=== PATIENT | female | born 1955 | race Caucasian/White ===

== ENCOUNTER 2021-06-12 11:49 | Inpatient (IN) ==
[2021-06-12 12:37] LABS: Basophils % 0.7 %; Hemoglobin 6.5 g/dL (11.5-15.4); Mean Platelet Volume 9.4 fL (9.4-12.4); Nucleated Red Blood Cells 0.3 /100 WBC (0)
[2021-06-12 12:51] LABS: Basophils # 0.1 K/mcL (0.0-0.2); Eosinophils # 0.4 K/mcL (0.0-0.6); Eosinophils % 2.4 %; Hematocrit 26.4 % (35.3-44.9); Immature Granulocytes % 1.1 % (0-4); Lymphocytes % 25.6 %; Mean Corpuscular HGB Conc 24.6 g/dL (31.6-35.5); Mean Corpuscular Hemoglobin 16.3 pg (28.0-33.3); Mean Corpuscular Volume 66.3 fL (83.0-100.0); Monocytes # 1.1 K/mcL (0.0-1.3); Monocytes % 7.4 %; Neutrophils # 9.7 K/mcL (1.6-8.9); Platelet Count 750 K/mcL (140-400); Red Blood Count 3.98 M/mcL (3.82-4.97); Red Cell Distribution Width 19.8 % (11.5-14.5); Segmented Neutrophils % 62.8 %; White Blood Count 15.4 K/mcL (4.3-11.1)
[2021-06-12 12:58] LABS: BUN/Creatinine Ratio 18 (6-26); Blood Urea Nitrogen 22 mg/dL (8-23); Calcium 8.8 mg/dL (8.6-10.3); Carbon Dioxide 23 mEq/L (23-29); Chloride 99 mEq/L (98-107); Glucose 172 mg/dL (70-105); Osmolality,Calculated 289 (280-300); Potassium 3.7 mEq/L (3.5-5.1); Sodium 136 mEq/L (136-145); Troponin I < 0.03 ng/mL (< 0.04); eGFR For African Americans 54 (> 60); eGFR For Non-African Americans 45 (> 60)
[2021-06-12 13:01] LABS: Lymphocytes # 3.9 K/mcL (0.6-4.6)
[2021-06-12 13:43] LABS: Hypochromasia Present (Not Present); Microcytosis Present (Not Present); Ovalocytes 1+ (Not Present); Platelet Estimate Increased (Normal)
[2021-06-12] MEDS ORDERED: Ondansetron 4 MG/2 ML VIAL IVP PRN (15:58)
[2021-06-12] MEDS ORDERED: Naloxone 0.4 MG/ML INJ IVP PRN (15:58)
[2021-06-12] MEDS ORDERED: Perflutren Lipid Microsphere 1.3 ML in 0.9 % Sodium Chloride 8.7 ML IVP PRN (16:09)
[2021-06-12] MEDS ORDERED: 0.9 % Sodium Chloride 250 ML ONE (16:10)
[2021-06-12] MEDS ORDERED: *HR* Dextrose 50 % in Water (Syg) 50 ML SYRINGE IVP PRN (16:42)
[2021-06-12] MEDS ORDERED: D5% in Water 1,000 ML IVC PRN (16:42)
[2021-06-12] MEDS ORDERED: Dextrose Gel 15 GM/37.5 ML TUBE PO PRN ×2 (16:42)
[2021-06-12] MEDS ORDERED: Isovue-370 500 ML BOTTLE PO ONE (19:05)
[2021-06-12 20:35] LABS: Folate 10.5 ng/mL (3.0-16.0)
[2021-06-12 20:57] LABS: Estimated Average Glucose 140 mg/dl; Hemoglobin A1C 6.5 %
[2021-06-12 21:20] LABS: Albumin 3.5 g/dL (3.5-5.7); Albumin/Globulin Ratio 1.2 (1.1-2.2); Bilirubin,Direct 0.1 mg/dL (0.0-0.2); Bilirubin,Indirect 0.3 mg/dL (0.0-1.0); Bilirubin,Total 0.4 mg/dL (0.3-1.0); Iron 45 mcg/dL (50-170); Total Protein 6.5 g/dL (6.4-8.9)
[2021-06-12] MEDS: cefTRIAXone 1,000 MG in Water for inj. (sterile) 10 ML IVP SCH (21:24)
[2021-06-12] MEDS: Insulin LISPRO 300 UNITS/3 ML VIAL SUBQ SCH (21:54)
[2021-06-12] MEDS: Acetaminophen 325 MG TABLET PO PRN (21:57)
[2021-06-12] MEDS: 0.9 % Sodium Chloride 1,000 ML IVC SCH (21:59)
[2021-06-12] MEDS: Pantoprazole 40 MG VIAL IVP SCH (22:11)
[2021-06-12] MEDS: Ipratropium/Albuterol Neb 3 ML IH SCH (22:24)
[2021-06-13] MEDS: Insulin LISPRO 300 UNITS/3 ML VIAL SUBQ SCH ×3 (00:46→13:20)
[2021-06-13] MEDS: Ipratropium/Albuterol Neb 3 ML IH SCH ×4 (03:32→22:18)
[2021-06-13 04:49] LABS: Immature Granulocytes % 0.7 % (0-4)
[2021-06-13 05:00] LABS: Basophils # 0.1 K/mcL (0.0-0.2); Basophils % 0.3 %; Eosinophils # 0.3 K/mcL (0.0-0.6); Eosinophils % 2.1 %; Hematocrit 25.6 % (35.3-44.9); Lymphocytes # 3.4 K/mcL (0.6-4.6); Lymphocytes % 21.5 %; Mean Corpuscular HGB Conc 27.3 g/dL (31.6-35.5); Mean Corpuscular Hemoglobin 18.6 pg (28.0-33.3); Mean Corpuscular Volume 68.1 fL (83.0-100.0); Mean Platelet Volume 9.2 fL (9.4-12.4); Monocytes # 1.4 K/mcL (0.0-1.3); Monocytes % 8.9 %; Neutrophils # 10.5 K/mcL (1.6-8.9); Nucleated Red Blood Cells 0.1 /100 WBC (0); Platelet Count 544 K/mcL (140-400); Red Blood Count 3.76 M/mcL (3.82-4.97); Segmented Neutrophils % 66.5 %; White Blood Count 15.8 K/mcL (4.3-11.1)
[2021-06-13 05:12] LABS: Alanine Aminotransferase 13 Units/L (7-52); Albumin 3.3 g/dL (3.5-5.7); Albumin/Globulin Ratio 1.1 (1.1-2.2); Alkaline Phosphatase 101 Units/L (34-104); Aspartate Amino Transferase 9 Units/L (13-39); BUN/Creatinine Ratio 19 (6-26); Bilirubin,Total 0.4 mg/dL (0.3-1.0); Blood Urea Nitrogen 20 mg/dL (8-23); Calcium 8.2 mg/dL (8.6-10.3); Carbon Dioxide 27 mEq/L (23-29); Chloride 102 mEq/L (98-107); Chol/HDL Ratio 2.8 (0-4.9); Cholesterol 137 mg/dL (< 200); Globulin 2.9 g/dL (2.4-3.5); Glucose 95 mg/dL (70-105); HDL Cholesterol 49 mg/dL (40-59); LDL Cholesterol,Calculated 68 mg/dL (< 100); Osmolality,Calculated 286 (280-300); Potassium 3.8 mEq/L (3.5-5.1); Sodium 137 mEq/L (136-145); Total Protein 6.2 g/dL (6.4-8.9); Triglycerides 98 mg/dL (< 150); eGFR For African Americans > 60 (> 60); eGFR For Non-African Americans 52 (> 60)
[2021-06-13] MEDS: Pantoprazole 40 MG VIAL IVP SCH (05:42)
[2021-06-13 06:06] LABS: Anisocytosis 2+ (Not Present); Hypochromasia Present (Not Present); Microcytosis Present (Not Present)
[2021-06-13 06:07] LABS: Platelet Estimate Increased (Normal)
[2021-06-13 12:01] LABS: Lipase 37 Units/L (11-82)
[2021-06-13] MEDS ORDERED: *HR* Propofol 200 MG/20 ML VIAL IVP ONE ×2 (12:02→12:10)
[2021-06-13] MEDS ORDERED: Lidocaine -MPF 2% 5 ML VIAL ONE (12:02)
[2021-06-13] MEDS: cefTRIAXone 1,000 MG in Water for inj. (sterile) 10 ML IVP SCH (17:53)
[2021-06-14] MEDS: Ipratropium/Albuterol Neb 3 ML IH SCH ×4 (03:43→19:50)
[2021-06-14 05:19] LABS: Basophils # 0.1 K/mcL (0.0-0.2); Basophils % 0.5 %; Eosinophils # 0.4 K/mcL (0.0-0.6); Eosinophils % 2.8 %; Hematocrit 23.5 % (35.3-44.9); Hemoglobin 6.3 g/dL (11.5-15.4); Immature Granulocytes % 1.2 % (0-4); Lymphocytes # 3.4 K/mcL (0.6-4.6); Lymphocytes % 26.6 %; Mean Corpuscular HGB Conc 26.8 g/dL (31.6-35.5); Mean Corpuscular Hemoglobin 18.5 pg (28.0-33.3); Mean Corpuscular Volume 69.1 fL (83.0-100.0); Mean Platelet Volume 8.9 fL (9.4-12.4); Monocytes # 1.3 K/mcL (0.0-1.3); Neutrophils # 7.5 K/mcL (1.6-8.9); Platelet Count 452 K/mcL (140-400); Red Cell Distribution Width 22.2 % (11.5-14.5); Segmented Neutrophils % 58.9 %; White Blood Count 12.7 K/mcL (4.3-11.1)
[2021-06-14 05:38] LABS: BUN/Creatinine Ratio 17 (6-26); Blood Urea Nitrogen 18 mg/dL (8-23); Calcium 7.8 mg/dL (8.6-10.3); Carbon Dioxide 26 mEq/L (23-29); Chloride 105 mEq/L (98-107); Glucose 133 mg/dL (70-105); Osmolality,Calculated 288 (280-300); Potassium 3.9 mEq/L (3.5-5.1); Sodium 137 mEq/L (136-145); eGFR For African Americans > 60 (> 60); eGFR For Non-African Americans 53 (> 60)
[2021-06-14 05:40] LABS: Anisocytosis 1+ (Not Present); Microcytosis Present (Not Present)
[2021-06-14 05:41] LABS: Hypochromasia Present (Not Present); Ovalocytes 1+ (Not Present); Platelet Estimate Normal (Normal); Poikilocytosis 1+ (Not Present)
[2021-06-14] MEDS ORDERED: 0.9 % Sodium Chloride 250 ML ONE (06:22)
[2021-06-14] MEDS ORDERED: Insulin LISPRO 300 UNITS/3 ML VIAL SUBQ SCH (07:30)
[2021-06-14 14:36] LABS: Ferritin < 8 ng/mL (10-120)
[2021-06-14 14:47] LABS: Transferrin 273
[2021-06-14 16:27] LABS: Platelet Count 437 K/mcL (140-400)
[2021-06-14 16:28] LABS: Hematocrit 28.8 % (35.3-44.9); Hemoglobin 8.2 g/dL (11.5-15.4); Mean Corpuscular HGB Conc 28.5 g/dL (31.6-35.5); Mean Corpuscular Hemoglobin 20.6 pg (28.0-33.3); Mean Corpuscular Volume 72.2 fL (83.0-100.0); Mean Platelet Volume 9.1 fL (9.4-12.4); Red Blood Count 3.99 M/mcL (3.82-4.97); Red Cell Distribution Width 23.4 % (11.5-14.5); White Blood Count 15.5 K/mcL (4.3-11.1)
[2021-06-14] MEDS: Acetaminophen 325 MG TABLET PO PRN (19:32)
[2021-06-15 01:24] LABS: Red Cell Distribution Width 23.9 % (11.5-14.5)
[2021-06-15 01:25] LABS: Hematocrit 27.9 % (35.3-44.9); Mean Corpuscular HGB Conc 28.7 g/dL (31.6-35.5); Mean Corpuscular Hemoglobin 20.5 pg (28.0-33.3); Mean Corpuscular Volume 71.5 fL (83.0-100.0); Mean Platelet Volume 9.2 fL (9.4-12.4); Platelet Count 404 K/mcL (140-400); White Blood Count 13.9 K/mcL (4.3-11.1)
[2021-06-15] MEDS: Ipratropium/Albuterol Neb 3 ML IH SCH ×2 (03:22→10:03)
[2021-06-15 05:42] LABS: Calcium 8.4 mg/dL (8.6-10.3)
[2021-06-15] MEDS: 0.9 % Sodium Chloride 1,000 ML IVC SCH (07:12)
[2021-06-15 07:27] VITALS: BP 155/72; PULSE 83; TEMP 98; O2SAT 99
[2021-06-16 11:01] LABS: % Iron Saturation 10 % (15-50); Transferrin 312 mg/dL (200-400)
== END 2021-06-15 11:30 | disposition home or self-care (01) | DRG 812 ==
LOC: 2ANU 11:49 → EMEROOARM 11:49 → 2ANU 17:38
PROVIDERS: ADMIT Internal Medicine; ATTEND Internal Medicine
PROC: ENDOEBX (2021-06-13 13:00)